=== PATIENT | male | born 2000 ===

== ENCOUNTER → 2022-01-19 | Emergency (ER) | payer SELFPAY ==
[~2022-01-19] MED LIST: HALOPERIDOL LACTATE 5 MG/1 ML INJ IM PRN; LORazepam 2 MG/ML VIAL IM PRN; LORazepam 2 MG/ML VIAL IM STA; MELATONIN 5 MG TAB PO SCH; risperiDONE 1 MG TAB PO SCH; traZODone 50 MG TAB PO PRN
--- NOTE | 2022-01-19 07:05 | Emergency Department Report ---
ED General Adult HPI - General Chief complaint: Psych Stated complaint: I hear the corruption Time Seen by Provider: 01/19/22 06:47 Source: patient, EMS ( EMS documentation not available at time of chart dictation ), RN notes reviewed Mode of arrival: Stretcher Limitations: Other (The patient is acutely psychotic) - History of Present Illness Initial comments: This is a 21-year-old gentleman with a history of psychiatric disease who presents with acute psychosis. He denies physical pain. He was noted to be attempting to steal from other individuals in the waiting room. The patient states that he is corrupted. Apparently, was brought in by EMS for psychiatric concerns. Patient is acutely psychotic, he denies physical pain. He is not accompanied by friends or family at this time for collateral information or additional history. The patient makes no medical complaints at this time. As per nursing documentation, the patient was "locked out of his house"," that is what triggered me", per EMS. Patient was followed by police department, walking up and down the road. - Related Data Allergies Allergy/AdvReac Type Severity Reaction Status Date / Time No Known Allergies Allergy Unverified 01/19/22 01:09 ED Review of Systems ROS: Stated complaint: MENTAL HEALTH CONCERNS Other details as noted in HPI Comment: Unobtainable due to pts medical conditions (The patient is acutely psychotic. He denies physical pain) ED Past Medical Hx - Past Medical History Previous Medical History?: Yes Hx Psychiatric Treatment: Yes (bipolar, schizophrenia) - Surgical History Past Surgical History?: No - Social History Smoking Status: Unknown if ever smoked ED Physical Exam - General Limitations: Other (Acute psychosis) General appearance: alert - Head Head exam: Present: atraumatic, normocephalic - Eye Eye exam: Present: normal appearance, EOMI. Absent: nystagmus - ENT ENT exam: Present: normal exam, normal orophraynx, mucous membranes moist, normal external ear exam - Neck Neck exam: Present: normal inspection, full ROM. Absent: tenderness, meningismus - Respiratory Respiratory exam: Present: normal lung sounds bilaterally. Absent: respiratory distress, wheezes, rales, rhonchi, stridor, decreased breath sounds - Cardiovascular Cardiovascular Exam: Present: normal rhythm, tachycardia, normal heart sounds. Absent: systolic murmur, diastolic murmur, rubs, gallop - GI/Abdominal GI/Abdominal exam: Present: soft. Absent: distended, tenderness, guarding, rebound, rigid, pulsatile mass - Rectal Rectal exam: Present: deferred - Extremities Exam Extremities exam: Present: normal inspection, full ROM, other (2+ pulses noted in the bilateral upper and lower extremities. There is no palpable cord. negative Homans sign. Muscular compartments are soft. The pelvis is stable.). Absent: pedal edema, calf tenderness - Back Exam Back exam: Present: normal inspection. Absent: tenderness, CVA tenderness (R), CVA tenderness (L), paraspinal tenderness, vertebral tenderness - Neurological Exam Neurological exam: Present: alert (Patient is alert and oriented to name. The patient follows commands. The patient is ambulatory with a steady gait.), normal gait, other (There is no facial droop. The tongue is midline. EOMI. 5/5 strength in 4 extremities) - Psychiatric Psychiatric exam: Present: flat affect, other (Patient reports that he is corrupted. The patient is making nonsensical statements. The patient appears to be responding to internal stimuli.) - Skin Skin exam: Present: warm, dry, intact, normal color. Absent: rash ED Course Vital Signs 01/19/22 01/19/22 01/19/22 01:10 08:33 10:19 Temperature 97.8 F 98.7 F Pulse Rate 117 H 87 Respiratory 18 18 12 Rate Blood Pressure 155/109 Blood Pressure 151/87 [Left] O2 Sat by Pulse 98 99 100 Oximetry - Reevaluation(s) Reevaluation #1: 01/19/22 07:27 Differential diagnosis, include but not limited to: Psychosis, medical clearance for psychiatric placement Assessment and plan: 21-year-old gentleman who presents with acute psychosis, with a known history of psychiatric disease. He meets criteria for 1013 secondary to the aforementioned. He will be medicated with Ativan. We will obtain appropriate laboratory studies. We will repeat his vital signs after ad ministration of Ativan. His external physical examination is benign and unremarkable. There is no evidence of head trauma. EMS documentation not available at this time for my review. Patient is not accompanied by friends or family at this time for collateral information or additional history. However, he does appear to be floridly psychotic 01/19/22 11:12 Vital signs are improved. Laboratory studies are unremarkable and essentially nonactionable. At this point in time, this patient does not appear to have an immediate medical contraindication to psychiatric admission, evaluation, consul tation and placement. A urinalysis, drug screen, and COVID swab have been ordered and they are pending. These have been ordered because they are typically requested by the psychiatric team. These tests are not required to exclude an emergent medical condition. The emergency room will follow along as the patient provides these tests ED Medical Decision Making - Lab Data Result diagrams: 01/19/22 07:29 01/19/22 07:29 Critical care attestation.: If time is entered above; I have spent that time in minutes in the direct care of this critically ill patient, excluding procedure time. ED Disposition Clinical Impression: Psychosis, Medical clearance for psychiatric admission Disposition: [address] [place] [address] Is pt being admited?: No Does the pt Need Aspirin: No Condition: Good Additional Instructions: Professional and Agency Contacts To help Resolve Crises (12/11) [place] Crisis Line: Suicide Prevention Line: Crisis Text Line: Text START to 597902 Emergency: 911 Outpatient COMMUNITY Behavioral Health Resources: [place]: [facility] [address], [place] [address] [facility] [address] [place] [address] Saturday thru Saturday - 8am - 5pm Call to schedule an assessment for mental health and substance abuse programs [facility] Address: [address] [place], [place] [address]Saturday thru Saturday- 7am-2pm [facility] Address: [address] [place] [address] Saturday thru Saturday: 8:30AM-5PM OUTPATIENT MENTAL HEALTH RESOURCES [facility], [facility] Miriam Conley MD: [address] [place] [address] [place] [address] [facility]: [facility] [address] [place] [address] [place] [address] [phone] [facility]: [facility] Healthcare: [address] [facility] [address] [place] [address] [facility] [id number] [facility]: Sukhjinder Venegas MD: [id number] [facility] [address] [facility] [id number] [facility]: [address] [place], [place] [id number] [phone] [place] CRISIS AND ACCESS LINE:
[2022-01-19 07:32] LABS: Hematocrit 44.4 % (35.5-45.6); Hemoglobin 14.3 gm/dl (11.8-15.2); Mean Corpuscular HGB Conc 32 % (32-34); Mean Corpuscular Volume 79 fl (84-94); Platelet Count 148 K/mm3 (140-440); Red Blood Count 5.66 M/mm3 (3.65-5.03); Red Cell Distribution Width 14.9 % (13.2-15.2)
[2022-01-19 07:51] LABS: Alanine Aminotransferase 23 units/L (7-56); Albumin 5.1 g/dL (3.9-5); BUN/Creatinine Ratio 12; Blood Urea Nitrogen 12 mg/dL (9-20); Calcium 9.8 mg/dL (8.4-10.2); Hemolysis Index 14
[2022-01-19 08:33] VITALS: BP 151/87
--- NOTE | 2022-01-19 17:21 | Consultation ---
History of Present Illness - Reason for Consult Consult date: 01/19/22 Reason for consult: mental health evaluation - Chief Complaint Chief complaint: acute psychosis - History of Present Psychiatric Illness ED NOTE: This is a 21-year-old gentleman with a history of psychiatric disease who presents with acute psychosis. He denies physical pain. He was noted to be attempting to steal from other individuals in the waiting room. The patient states that he is corrupted. Apparently, was brought in by EMS for psychiatric concerns. Patient is acutely psychotic, he denies physical pain. He is not accompanied by friends or family at this time for collateral information or additional history. The patient makes no medical complaints at this time. As per nursing documentation, the patient was "locked out of his house"," that is what triggered me", per EMS. Patient was followed by police department, walking up and down the road. Patient is a 21 year-old male who denies previous psychiatric diagnoses. Patient was alert and oriented x3 but guarded and disorganized throughout the interview. When asked what brought patient to ER, patient reports "I have no clue." When asked what happened last night, patient responds the same. When asked what's the last thing patient recalls, patient reports "my family looking for me because I never came home." Patient reports this happened months ago. Patient requests he be discharged and reports he plans to work at [id number] and live with his family until he has enough money to move out. When asked where patient lives, patient reports "[address] with my lil brother and my mom." When asked when he last had contact with his family, patient reports "I have no clue." Patient requests access to an android patient access to charge his phone. Patient denies schizophrenia or manic episodes. Patient denies recreational drug use. PAST PSYCHIATRIC HISTORY: Diagnoses: Denies Suicide attempts or Self-harm behavior: Denies Prior psychiatric hospitalizations: Denies Substance Abuse history: Denies Previous psychiatric medications tried: Denies Outpatient treatment: Denies SOCIAL HISTORY Marital Status: Single Living Arrangements: Homeless Employment Status: Unemployed Access to guns/weapons: Denies Education: High school History of Abuse: Denies Legal History: Denies REVIEW OF SYSTEMS Constitutional: Negative for weight loss ENT: Negative for stridor Respiratory: Negative for cough or hemoptysis All other systems reviewed and are negative MENTAL STATUS EXAMINATION General Appearance and Behavior: Age appropriate, wearing appropriate clothes, polite with questioning, poor eye contact Cooperation: Guarded Psychomotor Behavior: Psychomotor within normal limits Mood: depressed Affect and affective range: calm Thought Process: disorganized Thought Content: reality-based Speech: Normal volume, Regular rate and rhythm Suicidal Ideation: Denies Homicidal Ideation: Denies Hallucination: Denies Delusions: None elicited Impulse Control: Limited Insight and Judgment: Limited Memory: Limited Attention: Distracted Orientation: Alert and oriented x3 ASSESSMENT Acute psychosis TREATMENT Risperidone 1 mg BID Appreciate lorazepam for agitation Melatonin 5 mg qhs Risks, benefits and alternatives of medications discussed with the patient, questions answered and consent obtained from patient. PSYCHOTHERAPY: Supportive psychotherapy provided MEDICAL: Per primary team SENIOR SOFTWARE MANAGER: Defer to primary DISPOSITION: Recommend acute inpatient psychiatric hospitalization at this time. FOLLOW-UP: Will follow Thank you for the consult. Please contact with any questions and/or concerns. Case staffed with Dr. Rafal Simms. Medications and Allergies Allergies Allergy/AdvReac Type Severity Reaction Status Date / Time No Known Allergies Allergy Unverified 01/19/22 01:09 Active Meds: Active Medications Haloperidol Lactate (Haloperidol Lactate 5 Mg/1 Ml Inj) 5 mg IM Q6HR PRN PRN Reason: Agitation Lorazepam (Lorazepam 2 Mg/Ml Vial) 2 mg IM Q4HR PRN PRN Reason: Agitation Mental Status Exam - Vital signs Last Vital Signs Temp 98.7 F 01/19/22 08:33 Pulse 87 01/19/22 08:33 Resp 12 01/19/22 10:19 BP 151/87 01/19/22 08:33 Pulse Ox 100 01/19/22 10:19 Results Result Diagrams: 01/19/22 07:29 01/19/22 07:29 Abnormal lab results 01/19/22 01/19/22 01/19/22 Range/Units 07:29 07:29 07:29 RBC 5.66 H (3.65-5.03) M/mm3 MCV 79 L (84-94) fl MCH 25 L (28-32) pg Glucose 102 H (75-100) mg/dL Total Creatine Kinase 374 H (55-170) units/L Albumin 5.1 H (3.9-5) g/dL Salicylates < 0.3 L (2.8-20.0) mg/dL Acetaminophen (10.0-30.0) ug/mL Phenytoin 0.8 L (10.0-20.0) ug/mL Valproic Acid < 2.8 L (50-100) ug/mL 01/19/22 Range/Units 07:29 RBC (3.65-5.03) M/mm3 MCV (84-94) fl MCH (28-32) pg Glucose (75-100) mg/dL Total Creatine Kinase (55-170) units/L Albumin (3.9-5) g/dL Salicylates (2.8-20.0) mg/dL Acetaminophen 5.0 L (10.0-30.0) ug/mL Phenytoin (10.0-20.0) ug/mL Valproic Acid (50-100) ug/mL All other labs normal.
[2022-01-19 17:32] LABS: Bilirubin,Urine NEG (Negative); Blood,Urine NEG (Negative); Color,Urine Yellow (Yellow); Urobilinogen,Urine < 2 mg/dL (<2.0)
[2022-01-19 17:34] LABS: Mucus,Urine FEW /HPF; RBC,Urine < 1.0 /HPF (0.0-6.0)
[2022-01-19 17:40] LABS: Amphetamine Screen,Urine PRESUMPTIVE NEGATIVE; Benzodiazepines Screen,Urine PRESUMPTIVE NEGATIVE; Cannabinoid Screen,Urine PRESUMPTIVE POSITIVE; Cocaine Screen,Urine PRESUMPTIVE NEGATIVE; Methadone Screen,Urine PRESUMPTIVE NEGATIVE; Opiate Screen,Urine PRESUMPTIVE NEGATIVE
== END ==
LOC: ED 00:49
DX: F23 Brief psychotic disorder (principal); Z13.30 Encounter for screening examination for mental health and behavioral disorders, unspecified; Z20.822 Contact with and (suspected) exposure to COVID-19; Z79.899 Other long term (current) drug therapy; F31.9 Bipolar disorder, unspecified
CPT/HCPCS: 36415; 80053; 80164; 80178; 80185; 80307; 80320; 81001; 82550; 84443; 85027; 96372; 99285; G0480; J2060; U0003